=== PATIENT | male | born 1965 | race Caucasian/White ===

== ENCOUNTER 2025-01-27 05:36 | Emergency (ER) | payer OTHER, SELFPAY ==
--- NOTE | ~2025-01-27 | CT_ITS ---
EXAMINATION: CT abdomen pelvis wo conner, 01/27/2025 6:00 CDT HISTORY: right flank pain X 3 HRS COMPARISON: No comparisons available. TECHNIQUE: CT scan of the abdomen and pelvis was performed without IV contrast. One or more of the following dose reduction techniques were used: automated exposure control, adjustment of the mA and/or kV according to patient size, use of iterative reconstruction technique. Unless otherwise stated, incidental findings do not require dedicated follow up imaging FINDINGS: CT abdomen: LUNG BASES: Lung bases demonstrate bilateral atelectasis most marked involving the left lower lobe. LIVER: Unremarkable, liver contours intact, no lesions. SPLEEN: The spleen is not identified.. KIDNEYS: Right Kidney: Right kidney there are renal calculi noted largest in the superior pole 3 mm, mild hydronephrosis and hydroureter due to an obstructing distal ureteral calculus measuring 2 x 2 mm. Left Kidney: Left kidney renal calculi noted the largest in the lower pole 6 x 7 mm, no hydronephrosis or hydroureter. ADRENAL GLANDS: Unremarkable. PANCREAS: Unremarkable. GALLBLADDER/BILIARY: The gallbladder is contracted. STOMACH AND ESOPHAGUS: Small hiatal hernia. BOWEL/MESENTERY: Moderate fecal content. No colitis or diverticulitis. Appendix normal. Mesentery normal. Small bowel normal. ADENOPATHY/RETROPERITONEUM: No lymphadenopathy. AORTA/VASCULATURE: Normal caliber aorta. FREE FLUID OR FREE AIR: No free fluid.. CT pelvis: SOLID ORGANS/REPRODUCTIVE: Prostate enlarged, correlate with PSA. BLADDER: Within normal limits. OSSEOUS STRUCTURES: Fixation of the left femur. No sclerotic or lytic lesions. OVERLYING SOFT TISSUES: Small bilateral fat-containing inguinal hernia. IMPRESSION: 1. Right-sided obstructive uropathy Reviewed, dictated and finalized at location A.
[2025-01-27 05:36] VITALS: BP 171/91; PULSE 56; RESP 22; TEMP 36.3; O2SAT 98
[2025-01-27] MEDS: MORPHINE SULFATE (*CRX) 4 MG/ML INJ IV PUSH (05:46)
[2025-01-27] MEDS: KETOROLAC 15 MG/ML VIAL (*BKC) IV PUSH (05:46)
[2025-01-27 05:55] VITALS: BP 146/83; PULSE 65; RESP 18; O2SAT 93
--- NOTE | 2025-01-27 05:55 | ED_ITS ---
HPI - General Adult General Chief complaint: Abdominal Pain <Armaan Calles DO - Last Filed: 01/27/25 05:58> Stated complaint: L side Pain <Armaan Calles DO - Last Filed: 01/27/25 05:58> Time Seen by Provider: 01/27/25 05:40 <Armaan Calles DO - Last Filed: 01/27/25 05:58> History of Present Illness HPI narrative: Miguel presented to the ED with right flank pain that started when he woke up this morning. It is a constant right flank pain that radiates to his groin. He did vomit once but he is no longer nauseated. No diarrhea or fevers reported. <Armaan Calles DO - Last Filed: 01/27/25 05:58> Related Data Allergies/adverse reactions: Allergies Allergy/AdvReac Type Severity Reaction Status Date / Time No Known Allergies Allergy Verified 01/27/25 05:40 <Armaan Calles DO - Last Filed: 01/27/25 05:58> Review of Systems 2 Review of Systems: All systems reviewed & are unremarkable except as noted in HPI and below <Armaan Calles DO - Last Filed: 01/27/25 05:58> Exam 2 Const: General: cooperative, comfortable, no acute distress, well developed, alert, awake and Physically active <Armaan Calles DO - Last Filed: 01/27/25 05:58> Orientation/consciousness: oriented to person, oriented to place and oriented to time <Armaan Calles DO - Last Filed: 01/27/25 05:58> Other: Was in moderate distress <Armaan Calles - Last Filed: 01/27/25 05:58> HENMT: Head: normal to inspection, normocephalic and atraumatic <Armaan Calles DO - Last Filed: 01/27/25 05:58> Ears: hearing grossly normal bilaterally and external ears normal <Armaan Calles DO - Last Filed: 01/27/25 05:58> Face/Nose/Sinus: Normal external nose present <Armaan Calles DO - Last Filed: 01/27/25 05:58> Eyes: General: appearance normal, both eyes and all related structures < Armaan Calles DO - Last Filed: 01/27/25 05:58> Periorbital: periorbital findings normal <Armaan Calles, DO - Last Filed: 01/27/25 05:58> Sclera: sclerae normal <Armaan Calles DO - Last Filed: 01/27/25 05:58> Pupils: Equal, round and reactive pupils present <Armaan Calles, DO - Last Filed: 01/27/25 05:58> Neck: Neck: normal visual inspection <Armaan Calles DO - Last Filed: 01/27/25 05:58> Chest: Chest palpation & inspection: normal inspection of the chest <Armaan Calles DO - Last Filed: 01/27/25 05:58> Resp: Effort & Inspection: normal respiratory effort, able to speak in complete sentences and no respiratory distress <Armaan Calles DO - Last Filed: 01/27/25 05:58> Cardio: Jugular venous distension: no JVD <Armaan Calles DO - Last Filed: 01/27/25 05:58> GI: Inspection: normal to inspection <Armaan Calles, DO - Last Filed: 01/27/25 05:58> GI Palp: Yes Soft to palpation <Armaan Calles DO - Last Filed: 01/27/25 05:58> Auscultation: normal bowel sounds <Armaan Calles DO - Last Filed: 01/27/25 05:58> : Other: No CVA tenderness <Armaan Calles DO - Last Filed: 01/27/25 05:58> Skin: General skin exam: normal color and no rashes or lesions noted <Armaan Calles DO - Last Filed: 01/27/25 05:58> Neuro: General: oriented to person, oriented to place and oriented to time <Armaan Calles DO - Last Filed: 01/27/25 05:58> Cranial nerves: Yes Equal, round and reactive pupils present <Armaan Calles DO - Last Filed: 01/27/25 05:58> Extrem: General: normal to inspection <Armaan Calles DO - Last Filed: 01/27/25 05:58> Course Course Emergency Course: Given Toradol and morphine. Ordered UA, labs and CT <DO Jose Alonzo Last Filed: 01/27/25 05:58> Vital Signs Vital signs: Vital Signs Temperature 36.3 C L 01/27/25 05:36 Pulse Rate 56 L 01/27/25 05:36 Respiratory Rate 22 H 01/27/25 05:36 Blood Pressure 171/91 H 01/27/25 05:36 Pulse Oximetry 98 01/27/25 05:36 Oxygen Delivery Room Air 01/27/25 05:36 Temperature 36.3 C L 01/27/25 05:36 Pulse Rate 60 01/27/25 06:53 Respiratory Rate 16 01/27/25 06:53 Blood Pressure 116/68 01/27/25 06:53 Pulse Oximetry 92 01/27/25 06:53 Oxygen Delivery Room Air 01/27/25 06:53 <Armaan Calles DO - Last Filed: 01/27/25 05:58> Vital Signs Temperature 36.3 C L 01/27/25 05:36 Pulse Rate 56 L 01/27/25 05:36 Respiratory Rate 22 H 01/27/25 05:36 Blood Pressure 171/91 H 01/27/25 05:36 Pulse Oximetry 98 01/27/25 05:36 Oxygen Delivery Room Air 01/27/25 05:36 Temperature 36.3 C L 01/27/25 05:36 Pulse Rate 60 01/27/25 06:53 Respiratory Rate 16 01/27/25 06:53 Blood Pressure 116/68 01/27/25 06:53 Pulse Oximetry 92 01/27/25 06:53 Oxygen Delivery Room Air 01/27/25 06:53 <Jalen Ewing MD - Last Filed: 01/27/25 10:13> Medical Decision Making MDM Narrative Medical decision making narrative: Patient is 59-year-old male with right-sided abdominal pain/flank pain that was found to be a kidney stone/ureter stone on CT scan today. He will go home with pain medicine and a strainer and Flomax. I discussed the case with [facility] urologist and they agreed with plan. He will follow up with Urology in 1-2 weeks. <Jalen Ewing MD - Last Filed: 01/27/25 10:13> Vital Signs Vital Signs: Vital Signs Temperature 36.3 C L 01/27/25 05:36 Pulse Rate 56 L 01/27/25 05:36 Respiratory Rate 22 H 01/27/25 05:36 Blood Pressure 171/91 H 01/27/25 05:36 Pulse Oximetry 98 01/27/25 05:36 Oxygen Delivery Room Air 01/27/25 05:36 Temperature 36.3 C L 01/27/25 05:36 Pulse Rate 60 01/27/25 06:53 Respiratory Rate 16 01/27/25 06:53 Blood Pressure 116/68 01/27/25 06:53 Pulse Oximetry 92 01/27/25 06:53 Oxygen Delivery Room Air 01/27/25 06:53 <Armaan Calles DO - Last Filed: 01/27/25 05:58> Vital Signs Temperature 36.3 C L 01/27/25 05:36 Pulse Rate 56 L 01/27/25 05:36 Respiratory Rate 22 H 01/27/25 05:36 Blood Pressure 171/91 H 01/27/25 05:36 Pulse Oximetry 98 01/27/25 05:36 Oxygen Delivery Room Air 01/27/25 05:36 Temperature 36.3 C L 01/27/25 05:36 Pulse Rate 60 01/27/25 06:53 Respiratory Rate 16 01/27/25 06:53 Blood Pressure 116/68 01/27/25 06:53 Pulse Oximetry 92 01/27/25 06:53 Oxygen Delivery Room Air 01/27/25 06:53 <Jalen Ewing MD - Last Filed: 01/27/25 10:13> Lab Data Result diagrams: 01/27/25 06:03 01/27/25 06:03 <Armaan Calles DO - Last Filed: 01/27/25 05:58> Labs: Lab Results 01/27/25 01/27/25 Range/Units 06:03 06:25 WBC 12.7 H (4.8-10.8) K/mm3 RBC 4.71 (4.70-6.10) M/mm3 Hgb 15.3 (14.0-18.0) g/dL Hct 46.4 (40.0-54.0) % MCV 98.5 (78.0-102.0) fL MCH 32.5 H (27.0-31.0) pg MCHC 33.0 (32-36) g/dL RDW 13.5 (11.6-14.4) % Plt Count 309 (150-420) K/mm3 MPV 10.3 (8.7-11.0) fl Immature Gran % (Auto) 0.3 H (0.0-0.0) % Neut % (Auto) 55.7 (50.0-70.0) % Lymph % (Auto) 31.0 (18.0-42.0) % Weber % (Auto) 10.2 (2.0-11.0) % Eos % (Auto) 1.6 (1.0-6.0) % Baso % (Auto) 1.2 H (0.0-1.0) % Lymph # (Auto) 3.95 (1.10-4.50) K/mm3 Weber # (Auto) 1.30 H (0.10-0.90) K/mm3 Eos # (Auto) 0.20 (0.02-0.50) K/mm3 Baso # (Auto) 0.15 H (0.00-0.10) K/mm3 Abs Immat Gran (auto) 0.04 H (0.00-0.00) K/mm3 Absolute Neuts (auto) 7.09 (1.70-7.20) K/mm3 Absolute Nucleated RBC 0.00 (0.00-0.00) K/mm3 Nucleated RBC % 0.0 (0-0.0) % Sodium 143 (137-145) mmol/L Potassium 3.6 (3.4-5.0) mmol/L Chloride 105 (98-107) mmol/L Carbon Dioxide 29 (22-30) mmol/L Anion Gap 9 (4-12) mmol/L BUN 18 (9-20) mg/dL Creatinine 1.10 (0.7-1.3) mg/dL Estim Creat Clear Calc 59 ml/min Estimated GFR > 60 (59 - ) Glucose 143 H (65-110) mg/dL Calculated Osmolality 299 H (285-295) mOsm/kg Calcium 9.2 (8.4-10.2) mg/dL Total Bilirubin 0.4 (0.2-1.3) mg/dL AST 29 (17-59) U/L ALT 17 (6-50) U/L Alkaline Phosphatase 104 (38-126) U/L Total Protein 7.2 (6.3-8.2) g/dL Albumin 4.2 (3.5-5.1) g/dL Lipase 104 (23-300) U/L Urine Color Light luis (Yellow) Urine Appearance Sl cloudy A (Clear) Urine pH 5.5 (5.0-8.0) Ur Specific Panther Burn 1.025 H (1.010-1.020) Urine Protein 1+ H (Negative) Urine Glucose (UA) Negative (Negative) Urine Ketones Trace H (Negative) Ur Blood (Man) 3+ H (Negative) Urine Nitrate Negative (Negative) Urine Bilirubin Negative (Negative) Urine Urobilinogen 1.0 (0.2-1.0) mg/dL Leukocyte Esterase Rfl Negative (Negative) OLIVER/UL Urine RBC 51-75 H (0-2) /hpf Urine WBC None seen (0-3) /hpf Urine Bacteria Trace (None) /hpf <Armaan Calles, DO - Last Filed: 01/27/25 05:58> Lab Results 01/27/25 01/27/25 Range/Units 06:03 06:25 WBC 12.7 H (4.8-10.8) K/mm3 RBC 4.71 (4.70-6.10) M/mm3 Hgb 15.3 (14.0-18.0) g/dL Hct 46.4 (40.0-54.0) % MCV 98.5 (78.0-102.0) fL MCH 32.5 H (27.0-31.0) pg MCHC 33.0 (32-36) g/dL RDW 13.5 (11.6-14.4) % Plt Count 309 (150-420) K/mm3 MPV 10.3 (8.7-11.0) fl Immature Gran % (Auto) 0.3 H (0.0-0.0) % Neut % (Auto) 55.7 (50.0-70.0) % Lymph % (Auto) 31.0 (18.0-42.0) % Weber % (Auto) 10.2 (2.0-11.0) % Eos % (Auto) 1.6 (1.0-6.0) % Baso % (Auto) 1.2 H (0.0-1.0) % Lymph # (Auto) 3.95 (1.10-4.50) K/mm3 Weber # (Auto) 1.30 H (0.10-0.90) K/mm3 Eos # (Auto) 0.20 (0.02-0.50) K/mm3 Baso # (Auto) 0.15 H (0.00-0.10) K/mm3 Abs Immat Gran (auto) 0.04 H (0.00-0.00) K/mm3 Absolute Neuts (auto) 7.09 (1.70-7.20) K/mm3 Absolute Nucleated RBC 0.00 (0.00-0.00) K/mm3 Nucleated RBC % 0.0 (0-0.0) % Sodium 143 (137-145) mmol/L Potassium 3.6 (3.4-5.0) mmol/L Chloride 105 (98-107) mmol/L Carbon Dioxide 29 (22-30) mmol/L Anion Gap 9 (4-12) mmol/L BUN 18 (9-20) mg/dL Creatinine 1.10 (0.7-1.3) mg/dL Estim Creat Clear Calc 59 ml/min Estimated GFR > 60 (59 - ) Glucose 143 H (65-110) mg/dL Calculated Osmolality 299 H (285-295) mOsm/kg Calcium 9.2 (8.4-10.2) mg/dL Total Bilirubin 0.4 (0.2-1.3) mg/dL AST 29 (17-59) U/L ALT 17 (6-50) U/L Alkaline Phosphatase 104 (38-126) U/L Total Protein 7.2 (6.3-8.2) g/dL Albumin 4.2 (3.5-5.1) g/dL Lipase 104 (23-300) U/L Urine Color Light luis (Yellow) Urine Appearance Sl cloudy A (Clear) Urine pH 5.5 (5.0-8.0) Ur Specific Panther Burn 1.025 H (1.010-1.020) Urine Protein 1+ H (Negative) Urine Glucose (UA) Negative (Negative) Urine Ketones Trace H (Negative) Ur Blood (Man) 3+ H (Negative) Urine Nitrate Negative (Negative) Urine Bilirubin Negative (Negative) Urine Urobilinogen 1.0 (0.2-1.0) mg/dL Leukocyte Esterase Rfl Negative (Negative) OLIVER/UL Urine RBC 51-75 H (0-2) /hpf Urine WBC None seen (0-3) /hpf Urine Bacteria Trace (None) /hpf <Jalen Ewing MD - Last Filed: 01/27/25 10:13> Imaging Data Attestation: I personally reviewed and interpreted this imaging study as follows: <Jalen Ewing MD - Last Filed: 01/27/25 10:13> Radiologist's impression: CT scan abdomen and pelvis shows IMPRESSION: 1. Right-sided obstructive uropathy <Jalen Ewing MD - Last Filed: 01/27/25 10:13> Discharge Plan Discharge Clinical Impression: Right ureteral stone <Armaan Calles DO - Last Filed: 01/27/25 05:58> Patient Disposition: Home <Armaan Calles DO - Last Filed: 01/27/25 05:58> Condition: Stable <Armaan Calles DO - Last Filed: 01/27/25 05:58> Instructions: Kidney Stones (ED) <Armaan Calles DO - Last Filed: 01/27/25 05:58> Additional Instructions: Please follow-up with a urologist in the next 1-2 weeks. <Armaan Calles DO - Last Filed: 01/27/25 05:58> Patient Language: Bruneian <Armaan Calles DO - Last Filed: 01/27/25 05:58> Prescriptions: New tamsulosin [Flomax] 0.4 mg capsule 0.4 mg PO DAILY Qty: 20 0RF hydrocodone-acetaminophen 5-325 mg tablet 1 tablet PO Q8H PRN (Reason: pain) Qty: 20 0RF Rx Instructions: 1-2 tabs per dose <Armaan Calles DO - Last Filed: 01/27/25 05:58> Follow-up/Referrals: Miguel Lema MD [Primary Care Provider, Internal Medicine] <Armaan Calles DO - Last Filed: 01/27/25 05:58> Time of Disposition: 10:06 <Armaan Calles DO - Last Filed: 01/27/25 05:58> 10:06 <Jalen Ewing MD - Last Filed: 01/27/25 10:13>
[2025-01-27 06:08] LABS: Hematocrit 46.4 % (40.0-54.0); Hemoglobin 15.3 g/dL (14.0-18.0); Immature Granulocyte Percent A 0.3 % (0.0-0.0); Lymphocytes Absolute Auto 3.95 K/mm3 (1.10-4.50); Mean Corpuscular HGB Conc 33.0 g/dL (32-36); Mean Corpuscular Hemoglobin 32.5 pg (27.0-31.0); Mean Corpuscular Volume 98.5 fL (78.0-102.0); Nucleated Red Blood Cells Absolute Auto 0.00 K/mm3 (0.00-0.00); Nucleated Red Blood Cells Perc 0.0 % (0-0.0); Platelet Count Result 309 K/mm3 (150-420); Red Blood Count 4.71 M/mm3 (4.70-6.10); White Blood Count 12.7 K/mm3 (4.8-10.8)
[2025-01-27 06:26] LABS: Alanine Aminotransferase 17 U/L (6-50); Albumin Level 4.2 g/dL (3.5-5.1); Alkaline Phosphatase 104 U/L (38-126); Anion Gap 9 mmol/L (4-12); Aspartate Amino Transferase 29 U/L (17-59); Bilirubin,Total 0.4 mg/dL (0.2-1.3); Blood Urea Nitrogen 18 mg/dL (9-20); Calcium 9.2 mg/dL (8.4-10.2); Carbon Dioxide 29 mmol/L (22-30); Chloride 105 mmol/L (98-107); Estimated CRCL calculation 59 ml/min; Estimated Glomerular Filt Rate > 60; Glucose 143 mg/dL (65-110); Lipase 104 U/L (23-300); Osmolality Calculated 299 mOsm/kg (285-295); Potassium 3.6 mmol/L (3.4-5.0); Sodium 143 mmol/L (137-145); Total Protein 7.2 g/dL (6.3-8.2)
[2025-01-27 06:34] LABS: Add Urine Microscopic? YES; Appearance Urine Sl Cloudy (Clear); Glucose Urine UA Negative (Negative); Leukocyte Esterase Ur Negative LEU/UL (Negative); Nitrate Urine Negative (Negative); Specific Grav Ur 1.025 (1.010-1.020)
[2025-01-27 06:53] VITALS: BP 116/68; PULSE 60; RESP 16; O2SAT 92
[2025-01-27 10:22] VITALS: BP 115/70; PULSE 72; RESP 16; TEMP 36.7; O2SAT 93
== END 2025-01-27 10:26 | disposition home or self-care (01) ==
PROVIDERS: Emergency Provider Family Medicine; PCP Family Medicine
DX: N20.1 Calculus of ureter (principal)
CPT/HCPCS: 36415; 74176; 80053; 81001; 83690; 85025; 96374; 96375; 99284; J1885; J2270

== ENCOUNTER 2025-02-24 14:32 | Outpatient (CLI) | payer OTHER, SELFPAY ==
--- NOTE | ~2025-02-24 | XR_ITS ---
XR lumbar spine min 4V Indication: L HIP PAIN, LOW BACK PAIN Comparison: None Findings: The vertebral heights are intact. No fracture or subluxation. The disc heights are intact. Soft tissues unremarkable Impression: No acute abnormality. Reviewed, dictated and finalized at location P. Impression: No acute abnormality.
--- NOTE | ~2025-02-24 | XR_ITS ---
EXAMINATION: XR hip LT min 2V, 02/24/2025 14:45 CDT HISTORY: L HIP PAIN, LOW BACK PAIN COMPARISON: No comparisons available. Findings: Fixation left femur, no fracture or dislocation identified. Moderate degenerative changes. Soft tissues unremarkable. Impression: No acute fracture or malalignment. Reviewed, dictated and finalized at location P. Impression: No acute fracture or malalignment.
== END 2025-02-24 14:33 | disposition home or self-care (01) ==
PROVIDERS: PCP Family Medicine; Visit Provider Family Medicine
DX: M25.552 Pain in left hip (principal); M54.50 Low back pain, unspecified
CPT/HCPCS: 72110; 73502

== ENCOUNTER 2025-03-04 13:22 | Outpatient (RCR) | payer OTHER, SELFPAY ==
--- NOTE | 2025-03-04 14:39 | PTOPEVAL1 ---
Assessment and note entered by Sisi Leblanc DPT Evaluation Information Assessment Status Evaluation Diagnosis L hip pain ICD-10 Condition Codes (PT) Pain in low back M54.50,Pain in left hip M25.552 Onset 02/25/25 Subjective Information Patient reports he has L hip and low back pain. He reports that in 2005 he fractured his hip. He reports he has had pain since then. He reports pain seems to get a little worse every year. He reports that he feels like hip is very tight. He reports he does see the chiropractor every 2 weeks and last week they did stretching and that did seem to help. He reports difficulty with navigating steps, walking prolonged distances and standing in one place. He reports he has had multiple falls but does not like to use and AD. Reported Pain Level Pain Score 5,5: Self Report Assessment PT Clinical Summary Mr. Barajas is a 59 year old male who presents to PT with L hip and low back pain. He demonstrates decreased B LE strength L>R, decreased lumbar ROM and decreased B LE flexibility limiting his ability to navigate steps, ambulate prolonged distances, and stand to complete house hold tasks. Patient would benefit from skilled PT to address impairments and return to PLOF. Plan of Care Interventions Electrical Stimulation,Gait Training,Hot Pack/Cold Pack,Manual Therapy,Neuro Re-education, Therapeutic Activities,Therapeutic Exercise PT Services Indicated Yes Treatment Frequency and 2x weekly for 10 visits Duration These treatments will address the objective and functional deficits as defined above. The patient will be advanced safely and appropriately in order for the patient to progress towards his/her prior level of function. Additional exercises will be introduced and as well as a comprehensive home exercise program upon discharge, if needed, ?to ensure carryover of functional gains achieved in the clinic. This treatment plan has been reviewed and agreement upon by the patient.
--- NOTE | 2025-03-27 16:02 | PCPTNOTE ---
No call, no show.
--- NOTE | 2025-04-15 15:37 | PTOPREEVAL ---
Assessment and note entered by Sisi Leblanc DPT Evaluation Information Assessment Status Re-evaluation Diagnosis L hip pain ICD-10 Condition Codes (PT) Pain in low back M54.50,Pain in left hip M25.552 Onset 02/25/25 Subjective Information Patient reports his pain has been very minimal. He reports he does not like to do out door activities when the weather cools off. He reports he is starting to go to the [facility] in April starting with water aerobics. he reports he still require seated rest when completing house hold tasks. Reported Pain Level Pain Score 0,0: Self Report Assessment PT Clinical Summary Mr. Barajas has attended 10 visits of skilled PT with progression towards goals. He has demonstrated improved LE strength and improved gait distances. He continues to requires seated rest with house hold tasks. He reports pain has decreased and he is compliant with HEP. He would benefit from continued skilled PT to address remaining impairments and return to [facility]. Plan of Care Interventions Electrical Stimulation,Gait Training,Hot Pack/Cold Pack,Manual Therapy,Neuro Re-education, Therapeutic Activities,Therapeutic Exercise PT Services Indicated Yes Treatment Frequency and 1x weekly for 4 additional visits Duration These treatments will address the objective and functional deficits as defined above. The patient will be advanced safely and appropriately in order for the patient to progress towards his/her prior level of function. Additional exercises will be introduced and as well as a comprehensive home exercise program upon discharge, if needed, ?to ensure carryover of functional gains achieved in the clinic. This treatment plan has been reviewed and agreement upon by the patient.
--- NOTE | 2025-05-06 16:10 | PTOPEVAL1 ---
Assessment and note entered by Sisi Leblanc DPT Evaluation Information Assessment Status Discharge Diagnosis L hip pain ICD-10 Condition Codes (PT) Pain in low back M54.50,Pain in left hip M25.552 Onset 02/25/25 Subjective Information Patient reports the cold weather makes thing more difficult. He reports that he has improved ability to ambulate prolonged distance and improved ability to navigate steps. He reports that he is compliant with HEP Reported Pain Level Pain Score 2,2: Self Report Assessment PT Clinical Summary Mr. Barajas attended 12 visits of skilled PT with good progress towards goals. He demonstrates improve LE strength but continues to lack strength of the L LE compared to the R LE. He has been able to increase ambulation distances and improved ability to navigate stairs. He is independent with HEP and is appropriate for DC at this time. Plan of Care Interventions Electrical Stimulation,Gait Training,Hot Pack/Cold Pack,Manual Therapy,Neuro Re-education, Therapeutic Activities,Therapeutic Exercise PT Services Indicated No Treatment Frequency and DC to independent HEP Duration These treatments will address the objective and functional deficits as defined above. The patient will be advanced safely and appropriately in order for the patient to progress towards his/her prior level of function. Additional exercises will be introduced and as well as a comprehensive home exercise program upon discharge, if needed, ?to ensure carryover of functional gains achieved in the clinic. This treatment plan has been reviewed and agreement upon by the patient.
== END 2025-05-06 20:00 | disposition home or self-care (01) ==
LOC: CHSPT 13:22
PROVIDERS: PCP Family Medicine; Visit Provider Family Medicine
DX: M54.50 Low back pain, unspecified (principal); M25.552 Pain in left hip
CPT/HCPCS: 97110; 97150; 97161; 97530